=== PATIENT | female | born 1970 | race Caucasian/White ===

== ENCOUNTER → 2016-05-01 | Outpatient (CLI) | payer BC ==
[~2016-05-01] MED LIST: ATOR40TA70 PO; BETH25TA11 PO; CIPR500T78 PO; DCS100C PO; DEXL60CA PO; ESTR1TAB24 PO; ESZO1TAB2 PO; ESZO2TAB30 PO; IBP800T PO; LEVO137T2 PO; LEVO175T3 PO; NITR-65 PO; OXYC-465 PO; OXYC1TAB12 PO; SUCR1TAB PO
--- OUTSIDE RECORDS SUMMARY | 2016-05-01 10:25 | XMS REPORT | Continuity of Care Document ---
Author Author [facility] Organization [facility] Address Unknown Phone Unavailable Care Team Providers Care Specialty Development Consultant Name Role Phone JOE VERONICA MD PCP Insurance Providers Payer Name Policy Number Subscriber Name Relationship [facility] [id number] Leti Avalos 18 Self / Same As Patient Advance Directives Directive Response Recorded Date/Time Advance Directives No 07/03/14 7:45am Health Care Power of Tiler No 07/03/14 7:45am Organ Donor Yes 07/03/14 7:45am Resuscitation Status Full Code 07/03/14 7:45am Problems Medical Problems Problem Onset Date Status Acute urinary retention Unknown Active Acute urinary retention Unknown Active Acute urinary retention Unknown Active Acute urinary retention Unknown Active Urinary tract infection Unknown Active Medications Medication Dose Route Sig Days/Qty Instructions Order Date Discontinued Date Status Levothyroxine Sodium 175 Mcg PO DAILY 06/12/14 Active Eszopiclone 1 Mg PO BEDTIME 06/12/14 Active Atorvastatin Calcium 40 Mg PO DAILY@1800 06/12/14 Active Oxycodone Hcl/Acetaminophen 1-2 Tab PO GIVE EVERY 4 HRS ON SCHEDULE PRN PAIN 60 Qty 06/19/14 Active Ibuprofen 800 Mg PO GIVE EVERY 6 HR ON SCHEDULE 60 Qty 06/19/14 Active Docusate Sodium 100 Mg PO TWICE A DAY 60 Qty 06/19/14 Active Bethanechol Chloride 25 Mg PO FOUR TIMES DAILY 20 Qty 06/25/14 Active Ciprofloxacin HCl 500 Mg PO TWICE A DAY 10 Qty 07/03/14 Active Social History Social History Problem Response Recorded Date/Time Alcohol Use Occasionally Uses 07/03/2014 7:45am Recreational Drug Use No 07/03/2014 7:45am Recent Foreign Travel No 07/03/2014 7:31am Recent Infectious Disease Exposure No 07/03/2014 7:30am Hospitalization with Isolation Denies 07/03/2014 7:30am Smoking Status Unknown if Ever Smoked 07/03/2014 7:45am Query Response Start Date Stop Date Smoking Status Unknown if Ever Smoked Hospital Discharge Instructions No hospital discharge instructions. Plan of Care No plan of care. Functional Status No functional status results. Allergies, Adverse Reactions, Alerts Allergen Type Severity Reaction Status Last Updated No Known Drug Allergies Active 06/12/14 Immunizations Name Given Type Date of Influenza Vaccine 01/10/14 Historical Vital Signs Acute Vital Signs Vital Response Date/Time Temperature (Fahrenheit) 97.1 degrees F (97.6 - 99.5) Temperature (Calculated Celsius) 36.68759 degrees C (36.4 - 37.5) Temperature Source Temporal Pulse Rate (adult) 83 bpm (60 - 90) Respiratory Rate 20 bpm (12 - 24) O2 Sat by Pulse Oximetry 100 % (88 - 100) Blood Pressure 139/72 mm Hg Pain Pain Intensity 10 Height (Feet) 5 feet Height (Inches) 4 inches Height (Calculated Centimeters) 162.780097 cm Weight (Pounds) 200 pounds Weight (Calculated Grams) 718342.126 gm Weight (Calculated Kilograms) 90.791333 kilograms Calculated BMI 34.33 Results Laboratory Results Test Name Result Units Flags Reference Collection Date/Time Result Date/ Time Comments White Blood Count 7.3 10^3/uL 4.3-11.0 06/12/2014 3:05pm 06/12/2014 3: 19pm Red Blood Count 4.69 10^6/uL 4.35-5.85 06/12/2014 3:05pm 06/12/2014 3: 19pm Hemoglobin 13.4 G/DL 11.5-16.0 06/12/2014 3:05pm 06/12/2014 3:19pm Hematocrit 40 % 35-52 06/12/2014 3:05pm 06/12/2014 3:19pm Mean Corpuscular Volume 84 FL 80-99 06/12/2014 3:05pm 06/12/2014 3: 19pm Mean Corpuscular Hemoglobin 29 PG 25-34 06/12/2014 3:05pm 06/12/2014 3: 19pm Mean Corpuscular Hemoglobin Concent 34 G/DL 32-36 06/12/2014 3:05pm 06/2014 3:19pm Red Cell Distribution Width 14.3 % 10.0-14.5 06/12/2014 3:05pm 2014 3:19pm Platelet Count 232 10^3/uL 130-400 06/12/2014 3:05pm 06/12/2014 3:19pm Mean Platelet Volume 12.7 FL H 7.4-10.4 06/12/2014 3:05pm 06/12/2014 3: 19pm Neutrophils (%) (Auto) 60 % 42-75 06/12/2014 3:05pm 06/12/2014 3:19pm Lymphocytes (%) (Auto) 29 % 12-44 06/12/2014 3:05pm 06/12/2014 3:19pm Monocytes (%) (Auto) 9 % 0-12 06/12/2014 3:05pm 06/12/2014 3:19pm Eosinophils (%) (Auto) 2 % 0-10 06/12/2014 3:05pm 06/12/2014 3:19pm Basophils (%) (Auto) 0 % 0-10 06/12/2014 3:05pm 06/12/2014 3:19pm Neutrophils # (Auto) 4.4 X 10^3 1.8-7.8 06/12/2014 3:05pm 06/12/2014 3: 19pm Lymphocytes # (Auto) 2.1 X 10^3 1.0-4.0 06/12/2014 3:05pm 06/12/2014 3: 19pm Monocytes # (Auto) 0.7 X 10^3 0.0-1.0 06/12/2014 3:05pm 06/12/2014 3: 19pm Eosinophils # (Auto) 0.1 10^3/uL 0.0-0.3 06/12/2014 3:05pm 06/12/2014 3 :19pm Basophils # (Auto) 0.0 10^3/uL 0.0-0.1 06/12/2014 3:05pm 06/12/2014 3: 19pm Urine Color YELLOW 07/03/2014 7:35am 07/03/2014 8:05am Urine Clarity SLIGHTLY CLOUDY 07/03/2014 7:35am 07/03/2014 8:05am Urine pH 6 5-9 07/03/2014 7:35am 07/03/2014 8:05am Urine Specific [place] 1.025 * 1.016-1.022 07/03/2014 7:35am 2014 8:05am Urine Protein NEGATIVE NEGATIVE 07/03/2014 7:35am 07/03/2014 8:05am Urine Glucose (UA) NEGATIVE NEGATIVE 07/03/2014 7:35am 07/03/2014 8: 05am Urine RBC (Auto) 1+ * NEGATIVE 07/03/2014 7:35am 07/03/2014 8:05am Urine Ketones NEGATIVE NEGATIVE 07/03/2014 7:35am 07/03/2014 8:05am Urine Nitrite POSITIVE * NEGATIVE 07/03/2014 7:35am 07/03/2014 8:05am Urine Bilirubin NEGATIVE NEGATIVE 07/03/2014 7:35am 07/03/2014 8: 05am Urine Urobilinogen NORMAL MG/DL NORMAL 07/03/2014 7:35am 07/03/2014 8: 05am Urine Leukocyte Esterase 1+ * NEGATIVE 07/03/2014 7:35am 07/03/2014 8: 05am Urine RBC RARE /HPF 07/03/2014 7:35am 07/03/2014 8:05am Urine WBC 5-10 /HPF * 07/03/2014 7:35am 07/03/2014 8:05am Urine Bacteria FEW /HPF * 07/03/2014 7:35am 07/03/2014 8:05am Urine Crystals NONE /LPF 07/03/2014 7:35am 07/03/2014 8:05am Urine Casts NONE /LPF 07/03/2014 7:35am 07/03/2014 8:05am Urine Mucus NEGATIVE /LPF 07/03/2014 7:35am 07/03/2014 8:05am Urine Culture Indicated YES 07/03/2014 7:35am 07/03/2014 8:14am -- - 07/03/14 0814 --- UR CULT IND previously reported as: NO Procedures Procedure Status Date Provider(s) EXTENSIVE REPAIR OF VAGINA completed 06/18/14 SERA MALDONADO MD REPAIR BLADDER DEFECT completed 06/18/14 LEX MICHAELS MD [facility] W/T/O 250 G OR LESS completed 06/18/14 SERA MALDONADO MD Encounters Encounter Location Date/Time Departed Emergency Room Via [facility] 07/03/14 7:32am Departed Emergency Room Via [facility] 06/25/14 7:00pm Departed Surgical Day Care Via [facility] 06/18/14 6:16am Registered Clinic Via [facility] 06/12/14 2:40pm Recent Diagnosis
--- NOTE | 2016-05-01 10:55 | Diagnostic Imaging Report ---
INDICATION: Nausea, vomiting, heartburn. Comparison study: Lumbar spine from 11/11/2014. FINDINGS: Supine view of the abdomen demonstrates normal bowel gas pattern. No abnormal calcifications are present. Lung bases are clear. Mild scoliosis is again identified. IMPRESSION: There are no acute findings. Dictated by: Dictated on workstation # [id number]
== END ==
LOC: RAD 10:21
PROVIDERS: ATTEND Nurse Practitioner Family
DX: R10.13 Epigastric pain (principal); R11.2 Nausea with vomiting, unspecified
CPT/HCPCS: 74000

== ENCOUNTER 2016-06-01 08:00 | Outpatient (CLI) | payer BC ==
--- OUTSIDE RECORDS SUMMARY | 2016-05-29 05:42 | XMS REPORT | Continuity of Care Document ---
Author Author [facility] Organization [facility] Address Unknown Phone Unavailable Care Team Providers Care Slip Caster Name Role Phone JOE VERONICA MD PCP Insurance Providers Payer Name Policy Number Subscriber Name [facility] [id number] Leti Avalos 18 Self / Same As Patient Advance Directives Directive Response Recorded Date/Time Advance Directives No 07/03/14 7:45am Health Care Power of Carburetor Mechanic No 07/03/14 7:45am Organ Donor Yes 07/03/14 [...] F (97.6 - 99.5) Temperature (Calculated Celsius) 36.16683 degrees C (36.4 - 37.5) Temperature Source Temporal Pulse Rate (adult) 83 bpm (60 - 90) Respiratory Rate 20 bpm (12 - 24) O2 Sat by Pulse Oximetry 100 % (88 - 100) Blood Pressure 139/72 mm Hg Pain Pain Intensity 10 Height (Feet) 5 feet Height (Inches) 4 inches Height (Calculated Centimeters) 162.913387 cm Weight (Pounds) 200 pounds Weight (Calculated Grams) 564159.126 gm Weight (Calculated Kilograms) 90.218262 kilograms Calculated BMI 34.33 Results Laboratory Results [...] 5-9 07/03/2014 7:35am 07/03/2014 8:05am Urine Specific [place] 1.025 * 1.016-1.022 07/03/2014 7:35am 2014 8:05am [...] BLADDER DEFECT completed 06/18/14 LEX MICHAELS MD [facility] W/T/O 250 G OR LESS completed 06/18/14 SERA MALDONADO MD Encounters Encounter Location Date/Time Departed Emergency Room Via [facility] 07/03/14 7:32am Departed Emergency Room [facility] 06/25/14 7:00pm Departed Surgical Day Care [facility] 06/18/14 6:16am Registered Clinic Via [facility] 06/12/14 2:40pm Recent Diagnosis
[~2016-06-01] VITALS: Ht 170.2 cm; Wt 127.0 kg
[~2016-06-01 08:00] MED LIST changes: -DEXL60CA PO; -ESTR1TAB24 PO; -ESZO2TAB30 PO; -LEVO137T2 PO; -OXYC-465 PO; -SUCR1TAB PO
[2016-06-01] MEDS ORDERED: ESTR1TAB24 PO (08:07)
--- OUTSIDE RECORDS SUMMARY | 2016-06-01 08:18 | XMS REPORT | Continuity of Care Document ---
Author Author [facility] Organization [facility] Address Unknown Phone Unavailable Care Team Providers Care Gluing Machine Offbearer Name Role Phone JOE VERONICA MD PCP Insurance Providers Payer Name Policy Number Subscriber Name Relationship [facility] [id number] Leti Avalos 18 Self / Same As Patient Advance Directives Directive Response Recorded Date/Time Advance Directives No 07/03/14 7:45am Health Care Power of Mfg Assoc No 07/03/14 7:45am Organ Donor Yes 07/03/14 [...] F (97.6 - 99.5) Temperature (Calculated Celsius) 36.71947 degrees C (36.4 - 37.5) Temperature Source Temporal Pulse Rate (adult) 83 bpm (60 - 90) Respiratory Rate 20 bpm (12 - 24) O2 Sat by Pulse Oximetry 100 % (88 - 100) Blood Pressure 139/72 mm Hg Pain Pain Intensity 10 Height (Feet) 5 feet Height (Inches) 4 inches Height (Calculated Centimeters) 162.032254 cm Weight (Pounds) 200 pounds Weight (Calculated Grams) 441925.126 gm Weight (Calculated Kilograms) 90.302810 kilograms Calculated BMI 34.33 Results Laboratory Results [...] 5-9 07/03/2014 7:35am 07/03/2014 8:05am Urine Specific [place] 1.025 * 1.016-1.022 07/03/2014 7:35am 2014 8:05am [...] BLADDER DEFECT completed 06/18/14 LEX MICHAELS MD [facility] W/T/O 250 G OR LESS completed 06/18/14 SERA MALDONADO MD Encounters Encounter Location Date/Time Departed Emergency Room Via [facility] 07/03/14 7:32am Departed Emergency Room Via [facility] 06/25/14 7:00pm Departed Surgical Day Care [facility] 06/18/14 6:16am Registered Clinic [facility] 06/12/14 2:40pm Recent Diagnosis
[2016-06-01] MEDS ORDERED: SUCR1TAB PO (08:34)
[2016-06-01] MEDS ORDERED: OXYC-465 PO (08:34)
[2016-06-01] MEDS ORDERED: LEVO137T2 PO (08:34)
[2016-06-01] MEDS ORDERED: DEXL60CA PO (08:34)
[2016-06-01] MEDS ORDERED: ESZO2TAB30 PO (08:34)
== END 2016-06-01 08:35 ==
LOC: PREOP 08:00
PROVIDERS: ATTEND Surgery
DX: Z01.818 Encounter for other preprocedural examination (principal); R11.2 Nausea with vomiting, unspecified

== ENCOUNTER 2016-06-02 07:23 | Day surgery (SDC) | payer BC ==
[~2016-06-02] VITALS: Ht 170.2 cm; Wt 127.0 kg
[~2016-06-02 07:23] MED LIST changes: +DEXL60CA PO; +ESTR1TAB24 PO; +ESZO2TAB30 PO; +LEVO137T2 PO; +OXYC-465 PO; +SUCR1TAB PO
[2016-06-02] MEDS ORDERED: NS IV 1000 ML 1,000 ML IV STA (07:32)
--- NOTE | 2016-06-02 07:36 | Progress Note-Pre Operative ---
Pre-Operative Progress Note H&P Reviewed The H&P was reviewed, patient examined and no changes noted. Date H&P Reviewed: Jun 02, 2016 Time H&P Reviewed: 07:36 Pre-Operative Diagnosis: GERD nausea vomiting epigastric abdominal pain DURGA BRYANT DO Jun 02, 2016 7:36 am
[2016-06-02 07:41] VITALS: BP 188/107
[2016-06-02] MEDS ORDERED: MIDAZOLAM 2 MG/2 ML (VERSED) VIAL ONE ×2 (07:45→08:04)
[2016-06-02] MEDS ORDERED: ONDANSETRON 4 MG/2 ML (SDV) Z0FRAN ONE (07:45)
[2016-06-02] MEDS ORDERED: proPOfol 200 MG/20 ML (DIPRIVAN) VIAL IV ONE (08:04)
[2016-06-02] MEDS: HURRICAINE EXT TUBE (BENZOCAINE) XX PRN ×2 (08:12→08:16)
--- NOTE | 2016-06-02 08:47 | Progress Note-Post Operative ---
Post-Operative Progess Note Pre-Operative Diagnosis GERD nausea vomiting epigastric abdominal pain Post-Operative Diagnosis antral gastritis Post-Op Procedure Note Date of Procedure: Jun 02, 2016 Name of Procedure: egd c biopsy Procedure Note/Findings see note Anesthesia Type per radiologic technician Estimated blood loss (mL): none Specimen(s) collected antrum DURGA BRYANT DO Jun 02, 2016 8:47 am
[2016-06-02 09:10] VITALS: BP 147/91
--- NOTE | 2016-06-02 09:25 | Discharge Inst-Simple/Standard ---
Discharge Inst-Standard Patient Instructions/Follow Up Plan of Care/Instructions/FU: Conitnue with meds. take carafate QID Follow up with Dr. Medina in 2-3 weeks Activity as Tolerated: Yes Discharge Diet: No Restrictions LUZ MARIA RICHARD APRN Jun 02, 2016 09:25
[2016-06-02 09:40] VITALS: BP 150/92
[2016-06-02 10:54] VITALS: BP 188/107
[2016-06-02 11:00] VITALS: BP 188/107
--- NOTE | 2016-06-02 12:06 | PROCEDURE REPORT ---
PROCEDURE PHYSICIAN: DURGA BRYANT DATE OF PROCEDURE: 06/02/2016 PREOPERATIVE DIAGNOSIS: Gastroesophageal reflux disease, nausea and vomiting, epigastric abdominal pain. POSTOPERATIVE DIAGNOSIS: Antral gastritis PROCEDURE: EGD with biopsy. SURGEON: Adam. ANESTHESIA: Per FRONT DESK SUPERVISOR ESTIMATED BLOOD LOSS: None. SPECIMENS: Antrum. INDICATIONS: The patient is a 45-year-old female who has had persistent nausea and vomiting. She was recommended to have EGD. She understands the risks and benefits of the procedure and wished to proceed with procedure. Consent was signed on the chart. PROCEDURE: The patient was taken to the endoscopy suite, placed in the left lateral recumbent position. Timeout was performed. The scope was inserted in the mouth and advanced down the esophagus, stomach and into the duodenum without difficulties. There were no polyps, masses, ulcerations in the duodenum. The scope was then slowly retracted back into the stomach which was further insufflated. There were erythematous changes, inflammation of the antrum. A biopsy of the antrum was obtained. The scope was retroflexed noting no hiatal hernia. There were no polyps, masses, ulcerations. The scope was returned to its normal position slowly withdrawn back to the esophagus. There were no polyps, masses, ulcerations or erythematous changes. The scope was then slowly retracted until completely removed. The patient tolerated procedure well without any complications. She was taken to recovery room in stable condition. RECOMMENDATIONS: At this time would continue the Dexilant and the sucralfate. We will await biopsy results and see how she is doing at that time. Job ID: [id number] Dictated Date: 06/02/2016 08:48:34 Registered Radiation Therapist Date: 06/02/2016 11:57:38 / obed
--- OUTSIDE RECORDS SUMMARY | 2016-06-02 13:09 | XMS REPORT | Continuity of Care Document ---
Author Author [facility] Organization [facility] Address Unknown Phone Unavailable Care Team Providers Care Diamond Cleaner Name Role Phone JOE VERONICA MD PCP Insurance Providers Payer Name Policy Number Subscriber Name Relationship [facility] [id number] Leti Avalos 18 Self / Same As Patient Advance Directives Directive Response Recorded Date/Time Advance Directives No 07/03/14 7:45am Health Care Power of Booster Station Operator No 07/03/14 7:45am Organ Donor Yes 07/03/14 [...] F (97.6 - 99.5) Temperature (Calculated Celsius) 36.75270 degrees C (36.4 - 37.5) Temperature Source Temporal Pulse Rate (adult) 83 bpm (60 - 90) Respiratory Rate 20 bpm (12 - 24) O2 Sat by Pulse Oximetry 100 % (88 - 100) Blood Pressure 139/72 mm Hg Pain Pain Intensity 10 Height (Feet) 5 feet Height (Inches) 4 inches Height (Calculated Centimeters) 162.557650 cm Weight (Pounds) 200 pounds Weight (Calculated Grams) 847505.126 gm Weight (Calculated Kilograms) 90.553796 kilograms Calculated BMI 34.33 Results Laboratory Results [...] 5-9 07/03/2014 7:35am 07/03/2014 8:05am Urine Specific [place] 1.025 * 1.016-1.022 07/03/2014 7:35am 2014 8:05am [...] BLADDER DEFECT completed 06/18/14 LEX MICHAELS MD [facility] W/T/O 250 G OR LESS completed 06/18/14 SERA MALDONADO MD Encounters Encounter Location Date/Time Departed Emergency Room Via [facility] 07/03/14 7:32am Departed Emergency Room Via [facility] 06/25/14 7:00pm Departed Surgical Day Care [facility] 06/18/14 6:16am Registered Clinic [facility] 06/12/14 2:40pm Recent Diagnosis
--- OUTSIDE RECORDS SUMMARY | 2016-06-02 13:10 | XMS REPORT | Continuity of Care Document ---
Author Author [facility] Organization [facility] Address Unknown Phone Unavailable Care Team Providers Care Senior It Architect Name Role Phone JOE VERONICA MD PCP Insurance Providers Payer Name Policy Number Subscriber Name Relationship [facility] [id number] Leti Avalos 18 Self / Same As Patient Advance Directives Directive Response Recorded Date/Time Advance Directives No 07/03/14 7:45am Health Care Power of Oncologist No 07/03/14 7:45am Organ Donor Yes 07/03/14 [...] F (97.6 - 99.5) Temperature (Calculated Celsius) 36.19926 degrees C (36.4 - 37.5) Temperature Source Temporal Pulse Rate (adult) 83 bpm (60 - 90) Respiratory Rate 20 bpm (12 - 24) O2 Sat by Pulse Oximetry 100 % (88 - 100) Blood Pressure 139/72 mm Hg Pain Pain Intensity 10 Height (Feet) 5 feet Height (Inches) 4 inches Height (Calculated Centimeters) 162.920597 cm Weight (Pounds) 200 pounds Weight (Calculated Grams) 797610.126 gm Weight (Calculated Kilograms) 90.838022 kilograms Calculated BMI 34.33 Results Laboratory Results [...] 5-9 07/03/2014 7:35am 07/03/2014 8:05am Urine Specific [place] 1.025 * 1.016-1.022 07/03/2014 7:35am 2014 8:05am [...] BLADDER DEFECT completed 06/18/14 LEX MICHAELS MD [facility] W/T/O 250 G OR LESS completed 06/18/14 SERA MALDONADO MD Encounters Encounter Location Date/Time Departed Emergency Room Via [facility] 07/03/14 7:32am Departed Emergency Room Via [facility] 06/25/14 7:00pm Departed Surgical Day Care [facility] 06/18/14 6:16am Registered Clinic [facility] 06/12/14 2:40pm Recent Diagnosis
== END 2016-06-02 09:50 | disposition home or self-care (01) ==
LOC: ENDO 07:23
PROVIDERS: ATTEND Surgery
DX: K21.9 Gastro-esophageal reflux disease without esophagitis (principal); K29.50 Unspecified chronic gastritis without bleeding
CPT/HCPCS: 88305

== ENCOUNTER → 2016-07-03 | Outpatient (CLI) | payer BC ==
--- NOTE | 2016-07-03 08:12 | Diagnostic Imaging Report ---
PROCEDURE: US Gallbladder. TECHNIQUE: Multiple real-time grayscale images were obtained over the right upper quadrant in various projections. INDICATION: Nausea and vomiting. FINDINGS: The pancreas is largely obscured by bowel gas. The liver echogenicity is slightly increased and attenuates ultrasound beam. There is hepatopetal flow in the portal vein. The gallbladder demonstrates no stones or wall thickening. No pericholecystic fluid. The CBD is obscured by bowel gas. The right kidney is 11.2 cm in length. No hydronephrosis or focal lesion. No free fluid in the right upper quadrant or fluid collection noted. Sonographic Guzmán sign is reportedly negative. Overall there is some difficulty in visualization of the structures which is in part related to large patient body habitus. IMPRESSION: No gallstones. Possible hepatic fatty infiltration. Dictated by: Dictated on workstation # [id number]
== END ==
LOC: RAD 06:56
PROVIDERS: ATTEND Surgery
DX: R11.2 Nausea with vomiting, unspecified (principal)
CPT/HCPCS: 76705

== ENCOUNTER → 2016-07-10 | Outpatient (CLI) | payer BC ==
[~2016-07-10] MED LIST changes: +CATHETER FLUSH 10 ML SYR IV PRN
--- NOTE | 2016-07-10 14:14 | Diagnostic Imaging Report ---
INDICATION: Right upper quadrant abdominal pain. Nuclear hepatobiliary study performed in the routine fashion with intravenous injection of 5.42 mCi of technetium 99m Choletec. There is prompt uptake of the tracer by the liver. Tracer is visualized in the biliary tree and gallbladder within 15 minutes. Tracer is visualized into the small bowel within 1 hour. The patient was then given Ensure orally. The gallbladder ejection fraction was calculated. The calculated gallbladder ejection fraction was 52 percent. IMPRESSION: No evidence of cystic duct or common duct obstruction. Unremarkable study. Normal gallbladder ejection fraction. Dictated by: Dictated on workstation # [id number]
== END ==
LOC: CARD 11:34
PROVIDERS: ATTEND Surgery
DX: R11.2 Nausea with vomiting, unspecified (principal)
CPT/HCPCS: 78227

== ENCOUNTER → 2016-08-03 | Outpatient (CLI) | payer BC ==
[~2016-08-03] MED LIST changes: -CATHETER FLUSH 10 ML SYR IV PRN
--- NOTE | 2016-08-07 17:47 | Diagnostic Imaging Report ---
Bilateral screening mammogram. The current study was also evaluated with a Computer Aided Detection (CAD) system. INDICATION: Screening. No current complaints stated on the questionnaire. COMPARISON: 08/01/2015. FINDINGS: Breasts are composed of scattered fibroglandular densities. There is a nodule with circumscribed margins in the right breast stable from prior exams. The left breast is stable with multiple scattered calcifications seen. Allowing for technique and positional differences, no suspicious change is seen. IMPRESSION: No significant change. ACR BI-RADS Category 2: Benign findings. Result letter will be mailed to the patient. Note: At least 10% of breast cancer is not imaged by mammography. Dictated by: Dictated on workstation # [id number]
== END ==
LOC: RAD 14:11
PROVIDERS: ATTEND Obstetrics & Gynecology
DX: Z12.11 Encounter for screening for malignant neoplasm of colon (principal)
CPT/HCPCS: 77067

== ENCOUNTER → 2018-09-20 | Outpatient (CLI) | payer BC ==
[~2018-09-20] MED LIST changes: -ESZO2TAB30 PO; +ESZO2TAB31 PO
--- NOTE | 2018-09-21 10:57 | Diagnostic Imaging Report ---
EXAMINATION: Digital mammogram INDICATION: Bilateral screening with 3-D tomosynthesis and cad. This study was compared to the prior exam of 08/27/2017, 08/03/16 and 08/01/2015. At this time there are no current complaints. There are scattered fibroglandular densities in both breasts which could obscure a lesion. The previous study did show a roughly 1 CM nodular density in the medial aspect of the right breast. That density has nearly completely resolved. There is no primary or secondary sign of malignancy identified. IMPRESSION: There is no evidence for malignancy. ACR BI-RADS Category 1: Negative. Result letter will be mailed to the patient. Note: At least 10% of breast cancer is not imaged by mammography. Dictated by: Dictated on workstation # [id number]
== END ==
LOC: RAD 13:19
PROVIDERS: ATTEND Obstetrics & Gynecology
DX: Z12.31 Encounter for screening mammogram for malignant neoplasm of breast (principal)
CPT/HCPCS: 77067

== ENCOUNTER → 2019-09-25 | Outpatient (CLI) | payer BC ==
--- NOTE | 2019-09-25 12:16 | Diagnostic Imaging Report ---
INDICATION: Routine screening. Comparison is made with prior mammogram 09/20/2018 and 08/27/2017. 2-D and 3-D bilateral screening mammography was performed with CAD. Scattered fibroglandular densities are identified bilaterally. The parenchymal pattern is stable. No mass or malignant-appearing microcalcifications are seen. Benign calcifications are noted. Axillae are unremarkable. IMPRESSION: BI-RADS Category 2 No mammographic features suspicious for malignancy are identified. ACR BI-RADS Category 2: Benign findings. Result letter will be mailed to the patient. Note: At least 10% of breast cancer is not imaged by mammography. Dictated by: Dictated on workstation # [id number]
== END ==
LOC: RAD 08:56
PROVIDERS: ATTEND Obstetrics & Gynecology
DX: Z12.31 Encounter for screening mammogram for malignant neoplasm of breast (principal)
CPT/HCPCS: 77063; 77067

== ENCOUNTER → 2020-10-01 | Outpatient (CLI) | payer BC ==
[~2020-10-01] MED LIST changes: -OXYC-465 PO; +OXYC-556 PO
--- NOTE | 2020-10-01 15:38 | Diagnostic Imaging Report ---
INDICATION: Routine screening. COMPARISON: 09/25/2019 and 09/20/2018. TECHNIQUE: 2D and 3D bilateral screening mammography was performed with CAD. FINDINGS: Both breasts are heterogeneously dense, limiting the sensitivity of mammography. There are occasional benign calcifications. No mass or malignant appearing microcalcifications are seen. The axillae are unremarkable. IMPRESSION: No mammographic features suspicious for malignancy are identified. ACR BI-RADS Category 2: Benign findings. Result letter will be mailed to the patient. Note: At least 10% of breast cancer is not imaged by mammography. Dictated by: Dictated on workstation # [id number]
== END ==
LOC: RAD 13:31
PROVIDERS: ATTEND Obstetrics & Gynecology
DX: Z12.31 Encounter for screening mammogram for malignant neoplasm of breast (principal)
CPT/HCPCS: 77063; 77067

== ENCOUNTER → 2021-10-02 | Outpatient (CLI) | payer BC ==
--- NOTE | 2021-10-02 20:32 | Diagnostic Imaging Report ---
INDICATION: Routine screening. COMPARISON: Prior mammograms from 10/01/2020 and 09/25/2019. EXAMINATION: 2D and 3D bilateral screening mammography was performed with CAD. The current study was also evaluated with a Computer Aided Detection (CAD) system. FINDINGS: Scattered fibroglandular densities are identified, bilaterally. There are benign calcifications. No mass or malignant-appearing microcalcifications are identified. Axillae are unremarkable. IMPRESSION: No mammographic features suspicious for malignancy are identified. ACR BI-RADS Category 2: Benign findings. Result letter will be mailed to the patient. Note: At least 10% of breast cancer is not imaged by mammography. Dictated by: Dictated on workstation # [id number]
== END ==
LOC: RAD 14:31
PROVIDERS: ATTEND Nurse Practitioner Family
DX: Z12.31 Encounter for screening mammogram for malignant neoplasm of breast (principal)
CPT/HCPCS: 77063; 77067

== ENCOUNTER → 2022-10-21 | Outpatient (CLI) | payer BC ==
--- NOTE | 2022-10-22 12:19 | Diagnostic Imaging Report ---
Indication: Routine screening. Comparison is made with prior mammograms from 10/02/2021 and 10/01/2020. 2-D and 3-D bilateral screening mammography was performed with CAD. Scattered fibroglandular densities are identified bilaterally. The parenchymal pattern is stable. No spiculated mass or malignant-appearing microcalcifications are identified. There are benign calcifications bilaterally. The axillae are unremarkable. IMPRESSION: BI-RADS Category 2 No mammographic features suspicious for malignancy are identified. ACR BI-RADS Category 2: Benign findings. Result letter will be mailed to the patient. Note: At least 10% of breast cancer is not imaged by mammography. Dictated by: Dictated on workstation # [id number]
== END ==
LOC: RAD 15:02
PROVIDERS: ATTEND Family Medicine
DX: Z12.31 Encounter for screening mammogram for malignant neoplasm of breast (principal)
CPT/HCPCS: 77063; 77067